=== PATIENT | female | born 1950 | race Caucasian/White ===

== ENCOUNTER → 2016-03-30 | Outpatient (REF) | payer BC | LOC: M SFHCWAGY 13:54 → M SMT 13:54 | PROVIDERS: ATTEND Obstetrics & Gynecology | DX: Z12.4 Encounter for screening for malignant neoplasm of cervix (principal); N95.2 Postmenopausal atrophic vaginitis ==

== ENCOUNTER → 2016-10-17 | Outpatient (REF) | payer BC | LOC: M LAB REF 13:13 | PROVIDERS: ATTEND Nurse Practitioner Adult Health | DX: Z11.59 Encounter for screening for other viral diseases (principal) ==

== ENCOUNTER → 2017-04-17 | Outpatient (CLI) | payer BC | LOC: M WUC 11:06 | DX: M19.011 Primary osteoarthritis, right shoulder (principal); M75.31 Calcific tendinitis of right shoulder; Z91.81 History of falling | CPT/HCPCS: 73030 ==

== ENCOUNTER → 2017-05-07 | Outpatient (REF) | payer BC | LOC: M SFHCWAGY 10:37 | DX: Z12.4 Encounter for screening for malignant neoplasm of cervix (principal) | CPT/HCPCS: G0123 ==

== ENCOUNTER → 2018-08-06 | Outpatient (REF) | payer MEDICARE | LOC: M SFHCWAGY 11:38 | PROVIDERS: ATTEND Nurse Practitioner Family | DX: Z12.4 Encounter for screening for malignant neoplasm of cervix (principal); N95.2 Postmenopausal atrophic vaginitis ==

== ENCOUNTER → 2019-09-03 | Outpatient (CLI) | payer MEDICARE ==
[~2019-09-03] MED LIST: APPLTAB2 PO; ATOR1TAB19 PO; FLUO10CA16 PO; FLUT1BLS5 INH; HYDR25TAB PO; LANS15CA3 PO; LOSA100T50 PO; MULT-40 PO; VITA200028 PO
== END ==
LOC: M LABSMTC 12:32
PROVIDERS: ATTEND Pediatrics
DX: Z11.59 Encounter for screening for other viral diseases (principal); Z20.828 Contact with and (suspected) exposure to other viral communicable diseases

== ENCOUNTER → 2019-11-17 | Outpatient (REF) | payer MEDICARE | LOC: M LAB REF 12:21 | PROVIDERS: ATTEND Nurse Practitioner Adult Health | DX: E03.9 Hypothyroidism, unspecified (principal) ==

== ENCOUNTER → 2019-12-17 | Outpatient (REF) | payer MEDICARE | LOC: M SFHCWAGY 14:12 | PROVIDERS: ATTEND Nurse Practitioner Family | DX: Z01.419 Encounter for gynecological examination (general) (routine) without abnormal findings (principal); N76.0 Acute vaginitis | CPT/HCPCS: 87070; 87210; G0101 ==

== ENCOUNTER → 2020-05-18 | Outpatient (REF) | payer MEDICARE ==
[~2020-05-18] MED LIST changes: +HYDR-3490 PO; -HYDR25TAB PO
== END ==
LOC: M LAB REF 12:49
PROVIDERS: ATTEND Nurse Practitioner Adult Health
DX: E03.9 Hypothyroidism, unspecified (principal)

== ENCOUNTER → 2021-05-07 | Outpatient (CLI) | payer MEDICARE ==
[~2021-05-07] MED LIST changes: +BISO5TAB14 PO; -FLUO10CA16 PO; +FLUO10CA18 PO; +LOSA100T45 PO; -LOSA100T50 PO
== END ==
LOC: M LABSMTC 10:37
PROVIDERS: ATTEND Anesthesiology
DX: Z01.812 Encounter for preprocedural laboratory examination (principal); Z20.822 Contact with and (suspected) exposure to COVID-19

== ENCOUNTER 2021-05-12 10:33 | Day surgery (SDC) | payer MEDICARE ==
[~2021-05-12] VITALS: Ht 162.6 cm; Wt 95.3 kg
[~2021-05-12 10:33] MED LIST changes: +NS 1,000 ML IV ONE
[2021-05-12] MEDS ORDERED: propofoL 200 MG/20 ML VIAL As Ordered ONE ×2 (12:01→12:31)
[2021-05-12] MEDS ORDERED: LIDOCAINE 2% 100MG/5ML SDV (FOR ANES.) As Ordered ONE (12:03)
[2021-05-12 13:00] VITALS: BP 122/55
== END 2021-05-12 13:21 | disposition home or self-care (01) ==
LOC: M OPP 10:33
PROVIDERS: ATTEND Surgery
DX: Z12.11 Encounter for screening for malignant neoplasm of colon (principal); Z86.010 Personal history of colon polyps; Z80.0 Family history of malignant neoplasm of digestive organs; K64.2 Third degree hemorrhoids; K63.5 Polyp of colon; K57.30 Diverticulosis of large intestine without perforation or abscess without bleeding; K44.9 Diaphragmatic hernia without obstruction or gangrene; K31.7 Polyp of stomach and duodenum; Z79.899 Other long term (current) drug therapy; Z88.2 Allergy status to sulfonamides; Z87.891 Personal history of nicotine dependence

== ENCOUNTER → 2022-01-17 | Outpatient (CLI) | payer MEDICARE ==
[~2022-01-17] MED LIST changes: +LIDOCAINE 1% MDV 20ML VIAL As Ordered ONE; -NS 1,000 ML IV ONE
[2022-01-17 13:50] VITALS: BP 148/86
== END ==
LOC: M IRPRO 12:08
PROVIDERS: ATTEND Nurse Practitioner Adult Health
DX: D48.5 Neoplasm of uncertain behavior of skin (principal)

== ENCOUNTER → 2023-02-19 | Outpatient (CLI) | payer MEDICARE ==
[~2023-02-19] MED LIST changes: -LIDOCAINE 1% MDV 20ML VIAL As Ordered ONE; -LOSA100T45 PO; +LOSA100T46 PO
== END ==
LOC: M CARPUL 10:04
PROVIDERS: ATTEND Nurse Practitioner Adult Health
DX: I34.0 Nonrheumatic mitral (valve) insufficiency (principal)

== ENCOUNTER → 2023-12-04 | Outpatient (CLI) | payer MEDICARE ==
[~2023-12-04] MED LIST changes: +FLUO-290 PO; -FLUO10CA18 PO
== END ==
LOC: M WUC 12:30
PROVIDERS: ATTEND Nurse Practitioner Adult Health
DX: R05.3 Chronic cough (principal); Z87.891 Personal history of nicotine dependence

== ENCOUNTER → 2023-12-19 | Outpatient (CLI) | payer MEDICARE | LOC: M PLAIMG 12:28 | PROVIDERS: ATTEND Nurse Practitioner Adult Health | DX: R05.3 Chronic cough (principal); R91.8 Other nonspecific abnormal finding of lung field; J47.9 Bronchiectasis, uncomplicated; I25.10 Atherosclerotic heart disease of native coronary artery without angina pectoris ==

== ENCOUNTER → 2024-02-11 | Outpatient (CLI) | payer MEDICARE | LOC: M PLARAD 10:42 | PROVIDERS: ATTEND Nurse Practitioner Adult Health | DX: R91.1 Solitary pulmonary nodule (principal) | CPT/HCPCS: 78815; A9552 ==

== ENCOUNTER → 2024-12-22 | Outpatient (REF) | payer MEDICARE | LOC: M LAB REF 17:13 | PROVIDERS: ATTEND Nurse Practitioner Adult Health | DX: L65.9 Nonscarring hair loss, unspecified (principal) ==